=== PATIENT | male | born 1970 | race African-American/Black ===

== ENCOUNTER 2020-12-20 12:52 | Emergency (ER) | payer SELFPAY ==
--- NOTE | ~2020-12-20 | CT_ITS ---
EXAMINATION: CT abdomen pelvis w con DATE: 12/20/2020 15:28 INDICATION: Abdomen pain TECHNIQUE: Computed tomography (CT) of the abdomen and pelvis was performed with 100 cc Omnipaque 350 intravenous contrast. The dose-length product was 646.96 mGy-cm. Automated exposure control and iter ative reconstruction technique were employed. COMPARISON: None. FINDINGS: Lung bases are unremarkable. No significant pleural or pericardial effusion. Heart size is normal. No significant vascular abnormality. No lymphadenopathy. There is diffuse fatty infiltration of the liver. There are innumerable hypodense lesions of the live r throughout all segments. Gallbladder is contracted. The spleen, pancreas, adrenal glands and right kidney are unremarkable. 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 Nonobstructive bowel gas pattern. No free air or free fluid. No osteolytic or osteoblastic lesions. IMPRESSION: 1. Innumerable hypodense lesions of the liver which may represent microabscesses or metastatic diseas e. 2: Hepatic steatosis. 3: Heterotopic left pelvic kidney. Reviewed, dictated and finalized at location A. DESTRUCTIVE EVALUATION TECHNICIAN IMPRESSION: 1. Innumerable hypodense lesions of the liver which may represent microabscesse s or metastatic disease. 2: Hepatic steatosis. 3: Heterotopic left pelvic kidney.
[2020-12-20 12:58] VITALS: BP 200/125; PULSE 98; RESP 18; TEMP 35.7; O2SAT 100
[2020-12-20 13:23] LABS: Basophils Percent Auto 0.7 % (0.2-1.2); Eosinophils Percent Auto 0.7 % (0-4.4); Hematocrit 44.6 % (42.0-52.0); Hemoglobin 16.2 g/dL (14.0-18.0); Immature Granulocyte Absolute 0.01 K/mm3 (0.00-0.031); Immature Granulocyte Percent A 0.2 % (0-0.5); Lymphocytes Absolute Auto 1.85 K/mm3 (0.9-3.2); Lymphocytes Percent Auto 41.3 % (18.3-44.2); Mean Corpuscular HGB Conc 36.3 g/dl (32-36); Mean Corpuscular Hemoglobin 33.5 pg (26-34); Mean Corpuscular Volume 92.3 fl (80-100); Mean Platelet Volume 12.2 fl (7.4-10.4); Monocytes Absolute Auto 0.4 K/mm3 (0.1-0.6); Monocytes Percent Auto 9.6 % (2.6-8.5); Neutrophils Absolute Auto 2.1 K/mm3 (1.3-6.7); Neutrophils Percent Auto 47.5 % (45.5-73.1); Platelet Count Result 95 k/mm3 (150-375); Red Blood Count 4.83 M/mm3 (4.6-6.20); Red Cell Distribution Width 14.9 % (11.5-14.5); White Blood Count 4.5 K/mm3 (4.5-10.0)
[2020-12-20 13:42] LABS: Alanine Aminotransferase 171 U/L (4-50); Albumin Level 4.1 g/dL (3.5-5.1); Alkaline Phosphatase 175 U/L (38-126); Anion Gap 7 mmol/L (8-16); Aspartate Amino Transferase 279 U/L (17-59); Bilirubin,Total 4.5 mg/dL (0.2-1.3); Blood Urea Nitrogen 11 mg/dL (9-20); Calcium 8.6 mg/dL (8.4-10.2); Carbon Dioxide 34 mmol/L (22-30); Chloride 92 mmol/L (98-107); Estimated CRCL calculation 80 ml/min; Estimated Glomerular Filt Rate > 60; Glucose 151 mg/dL (75-110); Lipase 229 U/L (23-300); Potassium 2.8 mmol/L (3.4-5.0); Sodium 133 mmol/L (137-145)
[2020-12-20 13:46] LABS: Add Urine Microscopic? YES; Appearance Urine Clear (Clear); Bacteria Urine Trace /hpf; Bilirubin Urine Negative (Negative); Blood Urine 1+ (Negative); Color Urine Yellow (Yellow); Glucose Urine UA Negative (Negative); Ketones Urine Trace mg/dL (Negative); Leukocyte Esterase Ur Negative LEU/UL (Negative); Mucus Urine Rare /lpf; Nitrate Urine Negative (Negative); Protein Urine 2+ mg/dL (Negative); RBC Urine 0-2 /hpf (0-2); Specific Grav Ur 1.013 (1.001-1.035); WBC Urine 0-3 /hpf
--- NOTE | 2020-12-20 14:26 | ED.ABDPAIN ---
HPI - Abdominal Pain General Chief Complaint: Abdominal Pain Stated Complaint: ABD Pain, Ulcers Time Seen by Provider: 12/20/20 14:23 Source: patient Mode of arrival: ambulatory Limitations: no limitations History of Present Illness HPI narrative: A 50-year-old male presents to the emergency department today with complaints of abdominal pain, nausea vomiting and occasional black tarry stools. Patient does state that he has a history of drinking. He notes that he drinks approximately a pint of vodka daily or every other day. Patient states that his reason for coming in today was pain constantly for the last 3 days. Patient noted that as he came in and it did start to diminish. He denies having any black stools recently. Patient denies any recent nausea or vomiting. Related Data Allergies Allergy/AdvReac Type Severity Reaction Status Date / Time bacitracin Allergy Unknown Unknown Verified 12/20/20 13:01 neomycin Allergy Unknown Unknown Verified 12/20/20 13:01 polymyxin B Allergy Unknown Unknown Verified 12/20/20 13:01 Review of Systems Review of Systems: Narrative: CONSTITUTIONAL: Denies fever, chills, or sweats. EYES: Denies visual changes, redness, or discharge. ENT: Denies rhinorrhea, congestion, sore throat, or otalgia. CARDIOVASCULAR: Denies chest pain, palpitations, or edema. RESPIRATORY: Denies cough or dyspnea. GASTROINTESTINAL: Endorses abdominal pain, nausea, vomiting, and black stools. GENITOURINARY: Denies dysuria or hematuria. SKIN: Denies rash or itching. MUSCULOSKELETAL: Denies back pain, joint pain, or myalgia. NEUROLOGIC: Denies headache, numbness, dizziness, or weakness. PSYCHIATRIC: Denies anxiety or depression. [facility] Social History Social History Gender identity (if verbalized by the patient): Male Exam Narrative: Exam Narrative: GENERAL: Well-appearing, well-nourished, and in no acute distress. HEAD: Normocephalic, atraumatic. EYES: PERRLA and EOMI. ENT: Nares clear, no rhinorrhea or epistaxis. Mucous membranes moist. NECK: Supple. No adenopathy or masses. No carotid bruits or JVD CHEST: Clear to auscultation. No respiratory distress. No wheezes rales or rhonchi HEART: Regular rate and rhythm. No murmur heard. Normal peripheral pulses. ABDOMEN: Soft with generalized tenderness to palpation, nondistended, normal active bowel sounds. EXTREMITIES: Normal range of motion. No edema. SKIN: Warm, dry, no rash. NEURO: No focal deficits. Alert and oriented x3. PSYCH: Normal mood and affect. Course Reevaluation(s) Reevaluation #1: Informed the patient of the CT findings. With the elevation in his LFTs I do feel this warrants further evaluation. Patient's vitals are otherwise stable with the exception of his chronic hypertension. Case discussed with [facility] hepatology department as patient states that he does not want to be admitted or transferred. I feel an appropriate compromise would be to speak with the hepatology department and arrange close follow-up. Time: 16:55 Consultations Consultation #1: Spoke with Dr. Atkins, from [facility] GI department. He is in agreement that if the patient is not wanting to be transferred he may go home, and follow-up in the clinic as soon as possible. He states that he has the patient's information, will wrote a note to the dicer machine operator to try and get the patient an appointment for as soon as possible. Time: 17:05 Vital Signs Vital signs: Vital Signs Temperature 35.7 C L 12/20/20 12:58 Pulse Rate 98 12/20/20 12:58 Respiratory Rate 18 12/20/20 12:58 Blood Pressure 200/125 H 12/20/20 12:58 Pulse Oximetry 100 12/20/20 12:58 Temperature 35.7 C L 12/20/20 12:58 Pulse Rate 86 12/20/20 18:12 Respiratory Rate 21 H 12/20/20 18:12 Blood Pressure 212/137 H 12/20/20 18:12 Pulse Oximetry 98 12/20/20 18:12 MDM - Abdominal Pain MDM Narrative Medical decision making narrative: In brief
[2020-12-20] MEDS: POTASSIUM CHLORIDE 20 MEQ PACKET (FOR LIQUID) 40 MEQ PO (15:00)
[2020-12-20 15:52] VITALS: BP 233/139; PULSE 88; RESP 27; O2SAT 97
[2020-12-20] MEDS: ONDANSETRON INJ 4 MG/2 ML VIAL (15:58)
[2020-12-20] MEDS: amLODIPine BESYLATE 5 MG TABLET 10 MG PO (16:08)
[2020-12-20 16:27] VITALS: PULSE 94
[2020-12-20] MEDS: carvediloL 6.25 MG TABLET PO (16:27)
[2020-12-20 16:43] VITALS: BP 214/108; PULSE 99; RESP 15; O2SAT 100
[2020-12-20 18:12] VITALS: BP 212/137; PULSE 86; RESP 21; O2SAT 98
== END 2020-12-20 18:59 | disposition home or self-care (01) ==
PROVIDERS: Emergency Medicine; Emergency Provider Emergency Medicine
DX: D37.6 Neoplasm of uncertain behavior of liver, gallbladder and bile ducts (principal); E87.1 Hypo-osmolality and hyponatremia; K70.10 Alcoholic hepatitis without ascites; I10 Essential (primary) hypertension
CPT/HCPCS: 36415; 74177; 80053; 81001; 83690; 85025; 86850; 86900; 86901; 96365; 96366; 96375; 99284; A9270; J2405; J3480; Q9967

== ENCOUNTER 2021-03-17 16:22 | Emergency (ER) | payer OTHER, SELFPAY ==
--- NOTE | ~2021-03-17 | CT_ITS ---
EXAMINATION: CT brain wo con, CT facial bones wo con DATE: 03/17/2021 17:03 INDICATION: Left-sided facial swelling and confusion. TECHNIQUE: 1. Computed tomography (CT) of the head was performed without intravenous contrast. Sagittal and odette nal reconstructions were obtained. Automated exposure control and iterative reconstruction technique were employed. The dose-length product was 1059 mGy-cm. 2. CT of the facial bones and maxillofacial region was performed without intravenous contrast. Sagitt al and coronal reconstructions were obtained. The dose-length product was 584 mGy-cm. COMPARISON: Head CT dated 03/23/2019 FINDINGS: Head CT: No calvarial fracture. No acute intracranial hemorrhage, acute infarction or abnormal extra axial flu id collection. Ventricles are normal and symmetric. No mass/mass effect. Mastoid air cells and middle ear cavities are clear. Maxillofacial CT: Soft tissue swelling with subcutaneous edema surrounding a couple more focal globular region of incre ased attenuation likely representing hematomas in the left malar region. Soft tissue swelling extends cephalad into the left preseptal soft tissues. No maxillofacial fractures identified. Globes appear intact. No post septal inflammatory stranding. Mucosal thickening the right ethmoid sinuses. Remainde r of the paranasal sinuses are clear. IMPRESSION: 1. Left malar subcutaneous hematoma. No maxillofacial fractures. 2. Normal brain. No calvarial fracture or acute intracranial process. Reviewed, dictated and finalized at location A. IMPRESSION: 1. Left malar subcutaneous hematoma. No maxillofacial fractures. 2. Normal brain. No calvarial fracture or acute intracranial process.
[2021-03-17 16:20] VITALS: BP 176/129; PULSE 76; RESP 16; TEMP 36.4; O2SAT 100
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
[2021-03-17 16:59] LABS: Basophils Absolute Auto 0.1 K/mm3 (0.0-0.1); Basophils Percent Auto 0.7 % (0.2-1.2); Eosinophils Absolute Auto 0.1 K/mm3 (0-0.3); Eosinophils Percent Auto 0.9 % (0-4.4); Hematocrit 41.1 % (42.0-52.0); Hemoglobin 14.6 g/dL (14.0-18.0); Immature Granulocyte Absolute 0.01 K/mm3 (0.00-0.031); Immature Granulocyte Percent A 0.1 % (0-0.5); Lymphocytes Absolute Auto 3.69 K/mm3 (0.9-3.2); Lymphocytes Percent Auto 54.4 % (18.3-44.2); Mean Corpuscular HGB Conc 35.5 g/dl (32-36); Mean Corpuscular Hemoglobin 33.6 pg (26-34); Mean Corpuscular Volume 94.5 fl (80-100); Mean Platelet Volume 11.4 fl (7.4-10.4); Monocytes Absolute Auto 0.6 K/mm3 (0.1-0.6); Monocytes Percent Auto 8.3 % (2.6-8.5); Neutrophils Absolute Auto 2.4 K/mm3 (1.3-6.7); Neutrophils Percent Auto 35.6 % (45.5-73.1); Platelet Count Result 198 k/mm3 (150-375); Red Blood Count 4.35 M/mm3 (4.6-6.20); Red Cell Distribution Width 13.7 % (11.5-14.5); White Blood Count 6.8 K/mm3 (4.5-10.0)
[2021-03-17 17:09] LABS: Alanine Aminotransferase 98 U/L (4-50); Alkaline Phosphatase 71 U/L (38-126); Anion Gap 9 mmol/L (8-16); Aspartate Amino Transferase 196 U/L (17-59); Bilirubin,Total 1.4 mg/dL (0.2-1.3); Blood Urea Nitrogen 18 mg/dL (9-20); Calcium 9.5 mg/dL (8.4-10.2); Carbon Dioxide 30 mmol/L (22-30); Chloride 110 mmol/L (98-107); Estimated CRCL calculation 101 ml/min; Estimated Glomerular Filt Rate > 60; Glucose 155 mg/dL (75-110); Potassium 3.4 mmol/L (3.4-5.0); Sodium 149 mmol/L (137-145)
[2021-03-17] MEDS: METOCLOPRAMIDE HCL INJ 10 MG/2 ML VIAL IV PUSH (17:19)
[2021-03-17] MEDS: SODIUM CHLORIDE 0.9% IV 1,000 ML 999 ML (17:19)
--- NOTE | 2021-03-17 17:19 | PC.NURSE ---
Bed alarm placed under patient r/t alcohol use and fall risk.
--- NOTE | 2021-03-17 17:24 | PC.NURSE ---
Patient continue to attempt to get out of bed, advised to stay in bed r/t fall risk. Sitter placed at bedside.
[2021-03-17 17:45] LABS: Lipase 281 U/L (23-300)
[2021-03-17 18:08] VITALS: BP 175/103; PULSE 75; RESP 18; O2SAT 98
[2021-03-17 19:15] VITALS: BP 169/104; PULSE 72; RESP 18; O2SAT 98
== END 2021-03-17 19:15 | disposition home or self-care (01) ==
PROVIDERS: Emergency Provider Emergency Medicine
DX: S00.83XA Contusion of other part of head, initial encounter (principal); F10.10 Alcohol abuse, uncomplicated; X58.XXXA Exposure to other specified factors, initial encounter
CPT/HCPCS: 36415; 70450; 70486; 80053; 83690; 85025; 96361; 96374; 99284; J2765; J7030

== ENCOUNTER 2021-03-26 03:00 | Inpatient (IN) | payer OTHER, SELFPAY ==
[2021-03-26] VITALS (20 sets, daily range): BP systolic 154–198; BP diastolic 88–118; PULSE 69–96; RESP 16–20; TEMP 36.1–36.9; O2SAT 95–100; BMI 24.5
--- NOTE | 2021-03-26 | ECHO_ITS ---
Patient Info Name: Pranay Parks Age: 50 years : 1970 Gender: Male Ht: 75 in Wt: 196 lbs BSA: 2.17 m2 HR: 72 bpm BP: 167 / 101 mmHg Heart Rhythm: Sinus Rhythm Technical Quality: Good Exam Date: 03/26/2021 12:35 PM Exam Location: [facility] Pulmonary Patient Status: Inpatient Admit Date: 03/26/2021 Staff Ordering Physician: Jadiel Mascorro Bilingual Trainer: Lizabeth Attending Provider: Sd Pagan MD Referring Physician: Ludwin LOREDO; Exam Type: CA echo doppler color flow Study Info Indications R07.89 - Other chest pain Complete two-dimensional, color flow and Doppler transthoracic echocardiogram is performed. Summary 1. Complete two-dimensional, color flow and Doppler transthoracic echocardiogram is performed. 2. Left ventricular chamber dimension is normal. 3. Left ventricular systolic function is normal, estimated at 65-70%. 4. There is severely increased left ventricular wall thickness. 5. The left ventricular diastolic function is grade I diastolic dysfunction. 6. Left atrial chamber dimension is mildly enlarged. 7. There is mild mitral valve regurgitation. 8. The mitral valve has thickened leaflets. 9. There is mild tricuspid valve regurgitation. 10. There is mild pulmonic regurgitation. Left Ventricle Left ventricular chamber dimension is normal. Left ventricular systolic function is normal, estimated at 65-70%. There is severely increased left ventricular wall thickness. The left ventricular diastolic function is grade I diastolic dysfunction. Right Ventricle Right ventricular chamber dimension is normal. Right ventricular systolic function is normal. Left Atria Left atrial chamber dimension is mildly enlarged. Right Atria Right atrial chamber dimension is normal. Atrial Septum Intact interatrial septum visualized by color flow imaging. Aortic Valve The aortic valve is trileaflet. There is mild aortic valve sclerosis. There is no aortic valve stenosis. There is trace aortic valve regurgitation. Pulmonic Valve The pulmonic valve is normal. There is no pulmonic valve stenosis. There is mild pulmonic regurgitation. Mitral Valve The mitral valve has thickened leaflets. There is no mitral valve stenosis. There is mild mitral valve regurgitation. Tricuspid Valve The tricuspid valve leaflets are normal. There is no significant tricuspid valve stenosis. There is mild tricuspid valve regurgitation. No pulmonary hypertension, estimated pulmonary arterial systolic pressure is 12 mmHg. Pericardium/Pleural The pericardium appears normal. There is no pericardial effusion. Inferior Vena Cava Normal inferior vena cava with >50% collapse upon inspiration consistent with normal right atrial pressure, 5 mmHg. Aorta The aortic root size at the sinus of Valsalva is normal. The prox ascending aorta size is normal. Left Ventricular Outflow Tract Name Value Normal LVOT 2D LVOT Diameter 2.4 cm LVOT Doppler LVOT Peak Gradient 6 mmHg LVOT Mean Gradient 3 mmHg LVOT VTI
--- NOTE | ~2021-03-26 | CT_ITS ---
EXAMINATION: CT brain wo con DATE: 03/26/2021 04:00 INDICATION: Seizure. TECHNIQUE: Computed tomography (CT) of the head was performed without intravenous contrast. The mA wa s adjusted according to patient size. Iterative reconstruction technique was employed. The dose-lengt h product was 681.00 mGy-cm. COMPARISON: Head CT 03/17/2021 FINDINGS: There is no intracranial hemorrhage, acute infarction, or abnormal intracranial mass lesion . The ventricles are normal in size. There is mild mucosal thickening in right frontal sinus. The mas toid air cells are normal. The orbits are normal. IMPRESSION: 1. Normal brain. Reviewed, dictated and finalized at location B. IMPRESSION: 1. Normal brain.
--- NOTE | ~2021-03-26 | CT_ITS ---
EXAMINATION: CT chest abdomen pelvis wo con DATE: 03/26/2021 13:29 INDICATION: Right upper quadrant abdominal pain. TECHNIQUE: Computed tomography (CT) of the chest, abdomen, and pelvis was performed without intraveno us contrast. Automated exposure control and iterative reconstruction technique were employed. The dos e-length product was 1072.13 mGy-cm. COMPARISON: CT abdomen and pelvis 12/20/2020 FINDINGS: CHEST CT: There is mild scarring at the lung apices. There is mild emphysema. There is mild atelectasis in righ t lower lobe. There is a 4 mm nodule at left major fissure, likely benign. No pleural effusion. The h eart size is normal. There are coronary artery calcifications. No pericardial effusion. There is mild thoracic spondylosis. ABDOMEN/PELVIS CT: The liver demonstrates heterogeneous attenuation and surface nodularity, consistent with cirrhosis. T he gallbladder, spleen, pancreas, adrenal glands and right kidney are normal. There is a left-sided p elvic kidney. There are no dilated loops of bowel. The appendix is normal. There are no pathologicall y enlarged lymph nodes. There is no free intraperitoneal fluid. There is mild lumbar spondylosis. IMPRESSION: 1. Cirrhosis of the liver. Reviewed, dictated and finalized at location B. IMPRESSION: 1. Cirrhosis of the liver.
--- NOTE | ~2021-03-26 | US_ITS ---
EXAMINATION: US venous doppler [facility] DATE: 03/28/2021 15:03 INDICATION: Painful bilateral varicose veins. TECHNIQUE: Grayscale ultrasound images without and with compression and Doppler ultrasound images of the bilateral lower extremity veins were obtained. COMPARISON: None. FINDINGS: The visualized portions of right common femoral vein, profunda (deep) femoral vein, femoral vein, pop liteal vein, posterior tibial veins, peroneal veins, gastrocnemius vein and greater saphenous vein ou tflow are patent. Patent and compressible subcutaneous varicosities measure up to 4-5 mm in diameter are seen at the right thigh. The visualized portions of left common femoral vein, profunda femoral vein, femoral vein, popliteal v ein, posterior tibial veins, peroneal veins, gastrocnemius vein and greater saphenous vein outflow ar e patent. IMPRESSION: 1. No deep venous thrombosis in either lower limb. 2. Small subcutaneous varicosities at the right thigh without evident thrombosis. Reviewed, dictated and finalized at location A. IMPRESSION: 1. No deep venous thrombosis in either lower limb. 2. Small subcutaneous varicosities at the right thigh without evident thrombosi s.
--- NOTE | ~2021-03-26 | XR_ITS ---
EXAMINATION: XR chest 2V DATE: 03/26/2021 04:07 INDICATION: Seizure TECHNIQUE: frontal and lateral views of the chest were obtained. COMPARISON: Chest radiograph dated 06/23/2015 FINDINGS: The lungs remain clear with no focal airspace opacities, pulmonary edema, pleural effusion or pneumot horax. The cardiomediastinal silhouette is normal. Mild thoracic spondylosis. IMPRESSION: 1. No acute cardiopulmonary disease. Reviewed, dictated and finalized at location A.
--- NOTE | 2021-03-26 03:01 | ED.SEIZURE ---
HPI - Seizure General Chief Complaint: Seizure Stated Complaint: UNKNOWN Time Seen by Provider: 03/26/21 03:01 Source: patient Mode of arrival: EMS Limitations: no limitations History of Present Illness HPI Narrative: Patient is a 50-year-old male with a history of alcohol abuse and alcoholic hepatitis who presents for evaluation of seizure activity. Patient was noted by roommate to be having shaking activity resembling a seizure, thus 911 was called. When EMS arrived, patient was confused. Patient was initially refusing transport but over a period of nearly 1 hour EMS was able to convince patient to come to hospital to be evaluated. Patient currently is awake, alert to person, place and to time. He denies any seizure history. He states he typically drinks 1 to 2 pints of alcohol daily but has not had any alcohol for 4 days. He denies any tongue biting, tongue lacerations or urinary incontinence. Patient denies any pain. He denies headache, chest pain, shortness of breath. Patient denies other drug use. EMS glucose 140. Related Data Allergies Allergy/AdvReac Type Severity Reaction Status Date / Time bacitracin Allergy Unknown Unknown Verified 03/17/21 16:42 neomycin Allergy Unknown Unknown Verified 03/17/21 16:42 polymyxin B Allergy Unknown Unknown Verified 03/17/21 16:42 Review of Systems Review of Systems: Narrative: CONSTITUTIONAL: Denies fever, chills, or sweats. EYES: Denies visual changes, redness, or discharge. ENT: Denies rhinorrhea, congestion, sore throat, or otalgia. CARDIOVASCULAR: Denies chest pain, palpitations, or edema. RESPIRATORY: Denies cough or dyspnea. GASTROINTESTINAL: Denies abdominal pain, nausea, vomiting, or diarrhea. GENITOURINARY: Denies dysuria or hematuria. SKIN: Denies rash or itching. MUSCULOSKELETAL: Denies back pain, joint pain, or myalgia. NEUROLOGIC: Denies headache, numbness, or weakness. [facility] Past Medical History Medical History (Updated 03/26/21 @ 04:45 by Cherelle Alvarez MD) Contusion of face Essential hypertension Social History Social History (Updated 03/26/21 @ 03:14 by Cherelle Alvarez MD) Alcohol intake: current Substance use: current Substance use type: marijuana Living arrangements: with roommate(s) Gender identity (if verbalized by the patient): Male Exam Narrative: Exam Narrative: Nursing note and vitals reviewed. CONSTITUTIONAL: The patient appears well-developed and well-nourished. No distress. HEAD: Normocephalic, left periorbital ecchymosis EYES: 2+ PERRL, EOMI, normal conjunctiva, anicteric EARS: External ears clear bilaterally, no hemotympanum MOUTH: OP clear, no erythema, exudates. No tongue laceration. NECK: midline trachea, supple, FROM. No midline cervical spinal tenderness. CARDIOVASCULAR: Normal rate, regular rhythm, normal heart sounds and intact distal pulses. No murmurs, rubs, gallops. PULMONARY: Effort normal and breath sounds normal. No respiratory distress. The patient has no wheezes, rales, ronchi. No chest wall tenderness, crepitus or ecchymoses. ABDOMINAL: Soft. Nontender, nondistended. No palpable masses EXTREMITIES:: moving all extremities symmetrically. -RUE: No deformity. Normal ROM at shoulder, elbow, wrist, and hand. Sensation intact M/U/R. Pulse 2+. -LUE: No deformity. Normal ROM at shoulder, elbow, wrist, and hand., Sensation intact M/U/R. Pulse 2+ -RLE: No deformity. Normal ROM at hip, knee, ankle. Sensation intact distally. -LLE: No deformity. Normal ROM at hip, knee, ankle. Sensation intact distally. NEUROLOGY: The patient is alert and oriented to person, place, and time. CN II-XII intact without deficits. Course Vital Signs Vital signs: Vital Signs Temperature 36.9 C 03/26/21 02:58 Pulse Rate 96 03/26/21 02:58 Respiratory Rate 16 03/26/21 02:58 Blood Pressure 197/113 H 03/26/21 02:58 Pulse Oximetry 98 03/26/21 02:58 Temperature 36.9 C 03/26/21 02:58 Pulse Rate 74 03/26/21 04:16 Respi
--- NOTE | 2021-03-26 03:08 | ECG_ITS ---
Measurements Intervals [place] Rate: 83 P: 65 WV: 155 QRS: -49 QRSD: 114 T: 53 QT: 412 QTc: 484 Interpretive Statements SINUS RHYTHM LEFT ANTERIOR FASCICULAR BLOCK VOLTAGE CRITERIA FOR LVH ABNORMAL ECG Electronically Signed On 03-26-2021 7:07:33 CDT by Sesar Xie D.O.
[2021-03-26 03:22] LABS: Basophils Percent Auto 0.4 % (0.2-1.2); Eosinophils Absolute Auto 0.1 K/mm3 (0-0.3); Hematocrit 42.8 % (42.0-52.0); Hemoglobin 14.9 g/dL (14.0-18.0); Immature Granulocyte Absolute 0.03 K/mm3 (0.00-0.031); Immature Granulocyte Percent A 0.4 % (0-0.5); Lymphocytes Absolute Auto 1.98 K/mm3 (0.9-3.2); Lymphocytes Percent Auto 28.9 % (18.3-44.2); Mean Corpuscular HGB Conc 34.8 g/dl (32-36); Mean Corpuscular Hemoglobin 33.7 pg (26-34); Mean Corpuscular Volume 96.8 fl (80-100); Monocytes Absolute Auto 0.8 K/mm3 (0.1-0.6); Monocytes Percent Auto 12.2 % (2.6-8.5); Neutrophils Absolute Auto 3.9 K/mm3 (1.3-6.7); Neutrophils Percent Auto 57.1 % (45.5-73.1); Platelet Count Result 94 k/mm3 (150-375); Red Blood Count 4.42 M/mm3 (4.6-6.20); Red Cell Distribution Width 13.4 % (11.5-14.5); White Blood Count 6.9 K/mm3 (4.5-10.0)
[2021-03-26] MEDS: SODIUM CHLORIDE 0.9% IV 1,000 ML 999 ML IV CONT (03:23)
[2021-03-26] MEDS: LORazepam INJ (*CRX) 2 MG/ML VIAL 1 MG IV PUSH (03:23)
[2021-03-26 03:33] LABS: INR 1.3; Prothrombin Time 16.9 Seconds (11.1-14.7)
[2021-03-26 03:34] LABS: Partial Thromboplastin Time 26.8 SECONDS (22.3-36.8)
[2021-03-26 03:35] LABS: Magnesium 0.9 mg/dL (1.6-2.3); Phosphorus 2.9 mg/dL (2.5-4.5)
[2021-03-26 04:04] LABS: Alanine Aminotransferase 137 U/L (4-50); Albumin Level 4.3 g/dL (3.5-5.1); Alkaline Phosphatase 122 U/L (38-126); Anion Gap 17 mmol/L (8-16); Aspartate Amino Transferase 265 U/L (17-59); Bilirubin,Total 4.5 mg/dL (0.2-1.3); Blood Urea Nitrogen 12 mg/dL (9-20); Calcium 9.3 mg/dL (8.4-10.2); Carbon Dioxide 26 mmol/L (22-30); Chloride 94 mmol/L (98-107); Estimated CRCL calculation 65 ml/min; Estimated Glomerular Filt Rate > 60; Glucose 149 mg/dL (75-110); Potassium 2.5 mmol/L (3.4-5.0); Sodium 137 mmol/L (137-145); Troponin I 0.051 ng/mL (0.000-0.034)
[2021-03-26] MEDS: MAGNESIUM SULF 2 GM/WATER 50ML 2 GM/50 ML BAG IVPB (04:17)
[2021-03-26] MEDS: THIAMINE HCL INJ 100 MG, FOLIC ACID INJ 1 MG, MULTIVITAMINS-12 INJ VIAL 1 5 ML, MULTIVI... IV CONT (04:17)
[2021-03-26] MEDS: METOPROLOL TARTRATE INJ 5 MG/5 ML VIAL IV PUSH (04:17)
[2021-03-26 04:26] LABS: Ethanol < 10 mg/dL (<10)
[2021-03-26] MEDS: POTASSIUM CHLORIDE 20 MEQ PACKET (FOR LIQUID) 40 MEQ PO (04:37)
[2021-03-26] MEDS: hydroCHLOROthiazide 25 MG TABLET PO (04:37)
[2021-03-26] MEDS: carvediloL 12.5 MG TABLET PO (04:37)
[2021-03-26] MEDS: amLODIPine BESYLATE 5 MG TABLET 10 MG PO (04:37)
--- NOTE | 2021-03-26 06:15 | ADMGEN ---
This patient, Pranay Parks, was admitted to IMU Room 204-01. Patient/family oriented to hospital policies and general routines including ID bracelet, bed and alarms, visiting hours, pain management, procedures, bathroom and other care routines, personal items, smoking policy, room service/diet, and visiting hours. Information on how to activate the Rapid Response Team has been discussed. Patient/Family are encouraged to report perceived risks to care and to ask questions if they do not understand what they are told or what they should do.
[2021-03-26] MEDS: lisinopriL 10 MG TABLET PO (06:53)
[2021-03-26 07:06] LABS: Troponin I 0.064 ng/mL (0.000-0.034)
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
--- NOTE | 2021-03-26 08:15 | ECG_ITS ---
Measurements Intervals [place] Rate: 69 P: 66 MD: 163 QRS: -39 QRSD: 135 T: -50 QT: 440 QTc: 475 Interpretive Statements SINUS RHYTHM LEFT AXIS DEVIATION INTRAVENTRICULAR CONDUCTION DELAY LEFT VENTRICULAR HYPERTROPHY AND ST-T CHANGE BORDERLINE T WAVE ABNORMALITY- INFERIOR LEADS BASELINE ARTIFACT- V4-V6 BORDERLINE ECG Electronically Signed On 03-26-2021 9:00:39 CDT by Sesar Xie D.O.
[2021-03-26] MEDS: ASPIRIN 81 MG CHEWABLE TABLET PO (09:56)
[2021-03-26 10:02] LABS: Troponin I 0.059 ng/mL (0.000-0.034)
--- NOTE | 2021-03-26 10:57 | PM.CNCAR ---
Assessment and Plan Assessment and plan (1) Elevated troponin: Code(s): R77.8 - Other specified abnormalities of plasma proteins Status: Acute Assessment and Plan: This is not related to acute coronary syndrome. He is secondary for either to his seizure or his marked hypertension. DC further troponins. Repeat EKG (2) Alcohol withdrawal seizure: Qualifiers: Complication of substance-induced condition: uncomplicated Qualified Code(s): F10.230 - Alcohol dependence with withdrawal, uncomplicated; R56.9 - Unspecified convulsions Code(s): F10.239 - Alcohol dependence with withdrawal, unspecified; R56.9 - Unspecified convulsions Status: Acute Assessment and Plan: Per neurology (3) Electrolyte imbalance: Code(s): E87.8 - Other disorders of electrolyte and fluid balance, not elsewhere classified Status: Acute Assessment and Plan: Markedly low magnesium and potassium levels. Discontinue hydrochlorothiazide since he has persistent hypokalemia. He also may have a hyperaldosterone state. Will give an additional 4 g of IV magnesium now (4) Hypertensive urgency: Code(s): I16.0 - Hypertensive urgency Status: Acute Assessment and Plan: Possibly secondary to lack of medications recently versus alcohol abuse versus other secondary etiologies including possible hyper aldosterone state, untreated sleep apnea. Will check a renal and aldosterone level. 2D echocardiogram Doppler is ordered and will be reviewed. Continue amlodipine, lisinopril. Add carvedilol 6.25 mg p.o. b.i.d.. Spironolactone may be a good choice for him also depending on his renal function over the next couple of days. (5) Alcohol abuse: Code(s): F10.10 - Alcohol abuse, uncomplicated Status: Acute Assessment and Plan: Counseling performed. (6) Tobacco abuse: Code(s): Z72.0 - Tobacco use Status: Acute Assessment and Plan: Counseling performed History of Present Illness History of Present Illness Consult date/time: 03/26/21 10:57 Requesting physician: Cherelle Alvarez MD Consult reason: Other (Hypertensive urgency) Reason For Visit: Alcohol withdrawal seizure, Hypertensive urgency Narrative: Date of service 03/26/2021: History patient 50-year-old male who has history of high blood pressure. He has not been taking his medications recently. He states that he has a longstanding history of high blood pressure that he in firs is not well controlled at baseline. He has had a seizure at least 1 other occasion. He was at home a yesterday when every parent Monica had a seizure. He drinks alcohol routinely. According to chart record review he drinks anywhere from half pt to over a pt per day. He states he left work because of some Char[employer] horses that he has been having throughout his whole body. His potassium level and magnesium level were markedly low upon presentation to the hospital with a potassium level 2.5 and a magnesium of 0.9. Blood pressure was also very elevated and troponins were minimally elevated and Cardiology consultation was therefore requested. Patient denies any exertional chest pain. No paroxysmal nocturnal dyspnea, significant swelling, unusual shortness of breath with activity, syncope or presyncope or palpitations. Currently resting in bed with complaints of muscle cramping Review of Systems Review of Systems: All systems reviewed & are unremarkable except as noted in HPI and below Constitutional: Constitutional: Denies weakness Eyes: Eyes: Denies blurry vision ENT: Reports Normal hearing present Cardiovascular: Cardiovascular: Denies chest pain Respiratory: Respiratory: Denies dyspnea Gastrointestinal: Gastrointestinal: Denies abdominal pain Genitourinary: Genitourinary: Denies dysuria Musculoskeletal: Comments: Diffuse muscle cramping Integumentary/Breasts: Skin/Breast: Denies dry skin Neurologic: Denies headache(s
--- NOTE | 2021-03-26 11:07 | ECG_ITS ---
Measurements Intervals [place] Rate: 73 P: 64 OK: 161 QRS: -39 QRSD: 117 T: -18 QT: 424 QTc: 468 Interpretive Statements SINUS RHYTHM LEFT AXIS DEVIATION INCOMPLETE LEFT BUNDLE BRANCH BLOCK VOLTAGE CRITERIA FOR LVH CANNOT RULE OUT SEPTAL INFARCT, AGE INDETERMINATE BORDERLINE T WAVE ABNORMALITY- INFERIOR LEADS BASELINE ARTIFACT- V6 ABNORMAL ECG Electronically Signed On 03-26-2021 12:29:15 CDT by Sesar Xie D.O.
[2021-03-26] MEDS: hydrALAZINE HCL 20 MG/ML VIAL IV PUSH (12:43)
[2021-03-26] MEDS: HYDROcodone/acetaminophen (*CRX) 5-325 MG TABLET 1 TAB PO ×2 (12:43→20:34)
[2021-03-26] MEDS: MAGNESIUM SULF 4 GM/WATER100ML 4 GM/100 ML BAG IVPB (12:49)
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
[2021-03-26] MEDS: hydrALAZINE HCL 20 MG/ML VIAL 10 MG IV PUSH (16:25)
[2021-03-26 16:29] LABS: Anion Gap 7 mmol/L (8-16); Blood Urea Nitrogen 11 mg/dL (9-20); Calcium 8.9 mg/dL (8.4-10.2); Carbon Dioxide 31 mmol/L (22-30); Chloride 95 mmol/L (98-107); Estimated CRCL calculation 95 ml/min; Estimated Glomerular Filt Rate > 60; Glucose 193 mg/dL (75-110); Magnesium 2.1 mg/dL (1.6-2.3); Potassium 2.4 mmol/L (3.4-5.0); Sodium 133 mmol/L (137-145)
[2021-03-26] MEDS: POTASSIUM CHLORIDE 20 MEQ TABLET 40 MEQ PO (17:17)
[2021-03-26] MEDS: carvediloL 6.25 MG TABLET PO (20:33)
[2021-03-27] VITALS (19 sets, daily range): BP systolic 132–159; BP diastolic 80–102; PULSE 65–93; RESP 14–22; TEMP 36.2–36.6; O2SAT 97–100
[2021-03-27] MEDS: HYDROcodone/acetaminophen (*CRX) 5-325 MG TABLET 1 TAB PO ×4 (03:09→23:23)
[2021-03-27] MEDS: ONDANSETRON INJ 4 MG/2 ML VIAL IV PUSH (03:09)
[2021-03-27 05:29] LABS: Alanine Aminotransferase 108 U/L (4-50); Albumin Level 3.3 g/dL (3.5-5.1); Alkaline Phosphatase 94 U/L (38-126); Anion Gap 4 mmol/L (8-16); Aspartate Amino Transferase 180 U/L (17-59); Bilirubin,Total 2.8 mg/dL (0.2-1.3); Blood Urea Nitrogen 10 mg/dL (9-20); Calcium 8.5 mg/dL (8.4-10.2); Carbon Dioxide 33 mmol/L (22-30); Chloride 98 mmol/L (98-107); Estimated CRCL calculation 87 ml/min; Estimated Glomerular Filt Rate > 60; Glucose 133 mg/dL (75-110); Magnesium 1.8 mg/dL (1.6-2.3); Potassium 2.7 mmol/L (3.4-5.0); Sodium 135 mmol/L (137-145)
[2021-03-27] MEDS: amLODIPine BESYLATE 5 MG TABLET 10 MG PO (08:13)
[2021-03-27] MEDS: carvediloL 6.25 MG TABLET PO ×2 (08:13→19:41)
[2021-03-27] MEDS: ASPIRIN 81 MG CHEWABLE TABLET PO (08:13)
[2021-03-27] MEDS: lisinopriL 20 MG TABLET PO (08:13)
[2021-03-27] MEDS: THIAMINE HCL 100 MG TABLET PO (08:13)
[2021-03-27] MEDS: MAGNESIUM SULF 1 GM/D5W 100 ML 1 GM/100 ML BAG IVPB (08:14)
[2021-03-27] MEDS: FOLIC ACID 1 MG TABLET PO (08:14)
[2021-03-27] MEDS: POTASSIUM CHLORIDE 20 MEQ TABLET 40 MEQ PO ×2 (08:14→16:19)
[2021-03-27] MEDS: SPIRONOLACTONE 12.5 MG TABLET PO (08:14)
--- NOTE | 2021-03-27 09:14 | P.PNIM_ITS ---
Progress Note: A&P Assessment and Plan (1) Alcohol withdrawal seizure: Qualifiers: Complication of substance-induced condition: uncomplicated Qualified Code(s): F10.230 - Alcohol dependence with withdrawal, uncomplicated; R56.9 - Unspecified convulsions Code(s): F10.239 - Alcohol dependence with withdrawal, unspecified; R56.9 - Unspecified convulsions Status: Acute Assessment and Plan: * Patient is an every day drinker * No ETOH for the last four days * No history of seizure * CT head negative * Neurology following thank you for recommendations * CIWA * Lorazepam 1mg q6hr PRN * Folic acid 1mg PO * Thiamine 100mg PO * Move out of the IMU (2) Acute hypokalemia: Code(s): E87.6 - Hypokalemia Status: Acute Assessment and Plan: * Potassium 2.7 this am. repeat 3.4 will replace with 40mEq PO * 40mg PO and 40mg IV, total of approximately 240 mEq PO and IV * Recheck one hour after last replacement * Changed hydrochlorothiazide 12.5mg PO to spironolactone 12.5mg PO. * Replace as needed * [facility] tomorrow (3) Hypertensive urgency: Code(s): I16.0 - Hypertensive urgency Status: Acute Assessment and Plan: * 159/102 this am, instructed to give the PRN hydralazine 10mg IV * Patient has history of hypertension, non-compliant with medications * Received lisinopril 20mg PO, Hydrochlorothiazide 12.5mg PO, Amlodipine 10mg PO, Metoprolol 5mg IV in ED. * Cardiology following- thank you for recommendations * Continue home amlodipine 10mg, and lisinopril 20mg, add carvedilol 6.25mg * Changed the hydrochlorothiazide 12.5mg to spironolactone 12.5mg PO * Hydralazine 10 mg IV PRN (4) Cirrhosis, alcoholic: Qualifiers: Ascites presence: without ascites Qualified Code(s): K70.30 - Alcoholic cirrhosis of liver without ascites Code(s): K70.30 - Alcoholic cirrhosis of liver without ascites Status: Acute Assessment and Plan: * Right and left quad abdominal pain * CT of chest abdomen and pelvis: showed cirrhosis of the liver * Yellowing of the sclarea and pain with deep palpitation. * AST 180, ALT 108, Bilirubin 2.8, albumin 3.3 * Trend LFTs * Will repeat tomorrow (5) Alcohol abuse: Code(s): F10.10 - Alcohol abuse, uncomplicated Status: Acute Assessment and Plan: * Admits to drinking unclear about amount or frequency * No history of ETOH withdrawal * Educated about cessation of ETOH * treatment plans available * see plan above (6) Hypomagnesemia: Code(s): E83.42 - Hypomagnesemia Status: Acute Assessment and Plan: * Magnesium is 1.8, repeat was 1.9 * 1g ordered for replacement * 6g IV given throughout the day yesterday * will recheck with BMP 1 hour after replacements have been given * Mag in the AM * replace as needed (7) Elevated troponin: Code(s): R77.8 - Other specified abnormalities of plasma proteins Status: Acute Assessment and Plan: * Troponin: 0.051 -> 0.064 * no palpitations or chest pain on examination * Does report some palpitations in the past * Elevated blood pressure, more controlled * Elevation in V2-3 that looks the same as a previous EKG in 2019 * aspirin 81mg PO daily * Cardiology following thank you for recommendation (8) Chronic kidney disease (CKD) stage G2/A1, mildly decreased glomerular filtration rate (GFR) between 60-89 mL/min/1.73 square meter an
--- NOTE | 2021-03-27 09:14 | PM.IMPN ---
Progress Note: A&P Assessment and Plan (1) Alcohol withdrawal seizure: Qualifiers: Complication of substance-induced condition: uncomplicated Qualified Code(s): F10.230 - Alcohol dependence with withdrawal, uncomplicated; R56.9 - Unspecified convulsions Code(s): F10.239 - Alcohol dependence with withdrawal, unspecified; R56.9 - Unspecified convulsions Status: Acute Assessment and Plan: Patient is an every day drinker No ETOH for the last four days No history of seizure CT head negative Neurology following thank you for recommendations CIWA Lorazepam 1mg q6hr PRN Folic acid 1mg PO Thiamine 100mg PO Move out of the IMU (2) Acute hypokalemia: Code(s): E87.6 - Hypokalemia Status: Acute Assessment and Plan: Potassium 2.7 this am. repeat 3.4 will replace with 40mEq PO 40mg PO and 40mg IV, total of approximately 240 mEq PO and IV Recheck one hour after last replacement Changed hydrochlorothiazide 12.5mg PO to spironolactone 12.5mg PO. Replace as needed BMP tomorrow (3) Hypertensive urgency: Code(s): I16.0 - Hypertensive urgency Status: Acute Assessment and Plan: 159/102 this am, instructed to give the PRN hydralazine 10mg IV Patient has history of hypertension, non-compliant with medications Received lisinopril 20mg PO, Hydrochlorothiazide 12.5mg PO, Amlodipine 10mg PO, Metoprolol 5mg IV in ED. Cardiology following- thank you for recommendations Continue home amlodipine 10mg, and lisinopril 20mg, add carvedilol 6.25mg Changed the hydrochlorothiazide 12.5mg to spironolactone 12.5mg PO Hydralazine 10 mg IV PRN (4) Cirrhosis, alcoholic: Qualifiers: Ascites presence: without ascites Qualified Code(s): K70.30 - Alcoholic cirrhosis of liver without ascites Code(s): K70.30 - Alcoholic cirrhosis of liver without ascites Status: Acute Assessment and Plan: Right and left quad abdominal pain CT of chest abdomen and pelvis: showed cirrhosis of the liver Yellowing of the sclarea and pain with deep palpitation. AST 180, ALT 108, Bilirubin 2.8, albumin 3.3 Trend LFTs Will repeat tomorrow (5) Alcohol abuse: Code(s): F10.10 - Alcohol abuse, uncomplicated Status: Acute Assessment and Plan: Admits to drinking unclear about amount or frequency No history of ETOH withdrawal Educated about cessation of ETOH treatment plans available see plan above (6) Hypomagnesemia: Code(s): E83.42 - Hypomagnesemia Status: Acute Assessment and Plan: Magnesium is 1.8, repeat was 1.9 1g ordered for replacement 6g IV given throughout the day yesterday will recheck with BMP 1 hour after replacements have been given Mag in the AM replace as needed (7) Elevated troponin: Code(s): R77.8 - Other specified abnormalities of plasma proteins Status: Acute Assessment and Plan: Troponin: 0.051 -> 0.064 no palpitations or chest pain on examination Does report some palpitations in the past Elevated blood pressure, more controlled Elevation in V2-3 that looks the same as a previous EKG in 2019 aspirin 81mg PO daily Cardiology following thank you for recommendation (8) Chronic kidney disease (CKD) stage G2/A1, mildly decreased glomerular filtration rate (GFR) between 60-89 mL/min/1.73 square meter and albuminuria creatinine ratio less than 30 mg/g: Code(s): N18.2 - Chronic kidney disease, stage 2 (mild) Status: Acute Assessment and Plan: Creatine is 1.1 GFR >60 Past history of creatinine of 1.3-1.4 Probably related to HTN Trend renal function Control blood pressure Subjective Date/time seen: 03/27/21 09:14 Patient is a 50-year-old male with a past medical history of hypertension and alcohol abuse who presents to the ED after a fall and witnessed seizure by remain. Patient
--- NOTE | 2021-03-27 09:28 | PM.PNCARD ---
Progress Note: A&P Assessment and Plan (1) Elevated troponin: Code(s): R77.8 - Other specified abnormalities of plasma proteins Status: Acute Assessment and Plan: This is not related to acute coronary syndrome. He is secondary for either to his seizure or his marked hypertension. DC further troponins. (2) Alcohol withdrawal seizure: Qualifiers: Complication of substance-induced condition: uncomplicated Qualified Code(s): F10.230 - Alcohol dependence with withdrawal, uncomplicated; R56.9 - Unspecified convulsions Code(s): F10.239 - Alcohol dependence with withdrawal, unspecified; R56.9 - Unspecified convulsions Status: Acute Assessment and Plan: Per neurology (3) Electrolyte imbalance: Code(s): E87.8 - Other disorders of electrolyte and fluid balance, not elsewhere classified Status: Acute Assessment and Plan: Markedly low magnesium and potassium levels. Replacing potassium now. Will give an additional 2 g of IV magnesium now (4) Hypertensive urgency: Code(s): I16.0 - Hypertensive urgency Status: Acute Assessment and Plan: Possibly secondary to lack of medications recently versus alcohol abuse versus other secondary etiologies including possible hyper aldosterone state, untreated sleep apnea. renal and aldosterone level are pending. Continue amlodipine, lisinopril. Continue carvedilol 6.25 mg p.o. b.i.d.. Increase spironolactone 25 mg daily (5) Alcohol abuse: Code(s): F10.10 - Alcohol abuse, uncomplicated Status: Acute Assessment and Plan: Counseling performed. (6) Tobacco abuse: Code(s): Z72.0 - Tobacco use Status: Acute Assessment and Plan: Counseling performed Subjective Date/time seen: 03/27/21 09:28 Interval history: 50-year-old admitted for hypertensive urgency Date of service 03/27/2021: He denies any chest pain, significant shortness of breath. Still has some abdominal cramps. Review of Systems Review of Systems: All systems reviewed & are unremarkable except as noted in HPI and below Constitutional: Constitutional: Denies fatigue, Denies headache(s) and Denies weakness Eyes: Eyes: Denies blurry vision ENT: Reports Normal hearing present, Denies headache(s) and Denies lip swelling Cardiovascular: Cardiovascular: Denies chest pain and Denies dyspnea Respiratory: Respiratory: Denies dyspnea Gastrointestinal: Gastrointestinal: Denies abdominal pain Genitourinary: Genitourinary: Denies dysuria Integumentary/Breasts: Skin/Breast: Denies dry skin Neurologic: Reports Normal hearing present, Denies confusion, Denies headache(s) and Denies weakness Psychiatric: Psychiatric: Denies anxiety and Denies confusion Endocrine: Endocrine: Denies fatigue and Denies flushing Hematologic/Lymphatic: Hematologic/Lymphatic: Denies easy bleeding Allergic/Immunologic: Allergic/Immunologic: Denies GI upset with certain foods and Denies lip swelling Exam Narrative: Exam Narrative: Patient awake alert oriented appears to be in no acute distress. Appears stated age Const: General: comfortable and no acute distress; No confusion Orientation/consciousness: No confusion HENMT: General nose exam: Normal nares present Eyes: Sclera: sclerae normal Neck: Neck: supple and no JVD Chest: Other: No reproducible chest wall pain to palpation. Small Lipoma is palpated right flank Resp: Auscultation: wheezes Cardio: Rate: regular rate Rhythm: regular rhythm GI: Auscultation: normal bowel sounds Skin: General skin exam: normal color Neuro: General: No confusion Cranial nerves: Yes Normal hearing present Cognition (Neuro): normal cognition Speech: normal speech Extrem: General: normal to inspection Psych: Mental Status: mental status grossly normal Objective Data Vital Signs Vital Signs: Vital Signs - 24 hr 03/26/21 10:00 03/26/21 12:00 03/26/21 12:28 Temperat
[2021-03-27] MEDS: hydrALAZINE HCL 20 MG/ML VIAL 10 MG IV PUSH (09:29)
[2021-03-27] MEDS: IPRATROPIUM BR 0.02% INH SOLN 0.5 MG/2.5 ML VIAL INHALATION (11:24)
[2021-03-27] MEDS: ALBUTEROL SULFATE NEB 2.5 MG/3 ML INH 1.25 MG INHALATION (11:24)
[2021-03-27 12:15] LABS: Anion Gap 1 mmol/L (8-16); Blood Urea Nitrogen 13 mg/dL (9-20); Carbon Dioxide 34 mmol/L (22-30); Chloride 97 mmol/L (98-107); Estimated CRCL calculation 87 ml/min; Estimated Glomerular Filt Rate > 60; Glucose 115 mg/dL (75-110); Magnesium 1.9 mg/dL (1.6-2.3); Potassium 3.4 mmol/L (3.4-5.0); Sodium 132 mmol/L (137-145)
[2021-03-27 15:08] LABS: Cholesterol 169 mg/dL (0-200); HDL Direct 45 mg/dL; Triglycerides 51 mg/dL (<150)
[2021-03-27 15:10] LABS: LDL Cholesterol Direct 119 mg/dL
[2021-03-27] MEDS: NICOTINE (*PBKC) 21 MG PATCH 1 PATCH TRANSDERM (16:19)
[2021-03-27] MEDS: CYCLOBENZAPRINE HCL 5 MG TABLET PO (19:41)
[2021-03-28] VITALS (7 sets, daily range): BP systolic 137–153; BP diastolic 86–100; PULSE 65–84; RESP 16–18; TEMP 36.4; O2SAT 99–100
[2021-03-28 04:58] LABS: Hematocrit 38.3 % (42.0-52.0); Hemoglobin 13.3 g/dL (14.0-18.0); Mean Corpuscular HGB Conc 34.7 g/dl (32-36); Mean Corpuscular Hemoglobin 33.4 pg (26-34); Mean Corpuscular Volume 96.2 fl (80-100); Mean Platelet Volume 12.7 fl (7.4-10.4); Platelet Count Result 92 k/mm3 (150-375); Red Blood Count 3.98 M/mm3 (4.6-6.20); Red Cell Distribution Width 13.1 % (11.5-14.5); White Blood Count 5.6 K/mm3 (4.5-10.0)
[2021-03-28 07:34] LABS: Anion Gap 1 mmol/L (8-16); Blood Urea Nitrogen 15 mg/dL (9-20); Calcium 9.3 mg/dL (8.4-10.2); Carbon Dioxide 35 mmol/L (22-30); Chloride 101 mmol/L (98-107); Estimated CRCL calculation 87 ml/min; Estimated Glomerular Filt Rate > 60; Glucose 96 mg/dL (75-110); Magnesium 1.5 mg/dL (1.6-2.3); Potassium 3.9 mmol/L (3.4-5.0); Sodium 137 mmol/L (137-145)
[2021-03-28] MEDS: ASPIRIN 81 MG CHEWABLE TABLET PO (08:45)
[2021-03-28] MEDS: SPIRONOLACTONE 25 MG TABLET PO (08:45)
[2021-03-28] MEDS: NICOTINE (*PBKC) 21 MG PATCH 1 PATCH TRANSDERM (08:45)
[2021-03-28] MEDS: carvediloL 6.25 MG TABLET PO (08:46)
[2021-03-28] MEDS: lisinopriL 20 MG TABLET PO (08:46)
[2021-03-28] MEDS: MAGNESIUM SULF 2 GM/WATER 50ML 2 GM/50 ML BAG IVPB ×2 (08:46→10:22)
[2021-03-28] MEDS: THIAMINE HCL 100 MG TABLET PO (08:46)
[2021-03-28] MEDS: amLODIPine BESYLATE 5 MG TABLET 10 MG PO (08:46)
[2021-03-28] MEDS: FOLIC ACID 1 MG TABLET PO (08:46)
--- NOTE | 2021-03-28 08:48 | PM.PNCARD ---
Progress Note: A&P Assessment and Plan (1) Elevated troponin: Code(s): R77.8 - Other specified abnormalities of plasma proteins Status: Acute Assessment and Plan: This is not related to acute coronary syndrome. He is secondary for either to his seizure or his marked hypertension. Will DC telemetry (2) Alcohol withdrawal seizure: Qualifiers: Complication of substance-induced condition: uncomplicated Qualified Code(s): F10.230 - Alcohol dependence with withdrawal, uncomplicated; R56.9 - Unspecified convulsions Code(s): F10.239 - Alcohol dependence with withdrawal, unspecified; R56.9 - Unspecified convulsions Status: Acute Assessment and Plan: Per neurology (3) Electrolyte imbalance: Code(s): E87.8 - Other disorders of electrolyte and fluid balance, not elsewhere classified Status: Acute Assessment and Plan: Markedly low magnesium and potassium levels. Potassium is okay. Magnesium has dropped again. Is receiving 2 g IV x1 now and will give him an additional 2 g IV x1 Okay to transfer to Medicine without telemetry (4) Hypertensive urgency: Code(s): I16.0 - Hypertensive urgency Status: Acute Assessment and Plan: Possibly secondary to lack of medications recently versus alcohol abuse versus other secondary etiologies including possible hyper aldosterone state, untreated sleep apnea. renal and aldosterone level are pending. Continue current BP meds. (5) Alcohol abuse: Code(s): F10.10 - Alcohol abuse, uncomplicated Status: Acute Assessment and Plan: Counseling performed. (6) Tobacco abuse: Code(s): Z72.0 - Tobacco use Status: Acute Assessment and Plan: Counseling performed Subjective Date/time seen: 03/28/21 08:48 Interval history: 50-year-old admitted for hypertensive urgency Date of service 03/28/2021: Still has some cramping yesterday but overall is much better. No chest pain shortness breath. Review of Systems Review of Systems: All systems reviewed & are unremarkable except as noted in HPI and below Constitutional: Constitutional: Denies fatigue, Denies headache(s) and Denies weakness Eyes: Eyes: Denies blurry vision ENT: Reports Normal hearing present, Denies headache(s) and Denies lip swelling Cardiovascular: Cardiovascular: Denies chest pain and Denies dyspnea Respiratory: Respiratory: Denies dyspnea Gastrointestinal: Gastrointestinal: Denies abdominal pain Genitourinary: Genitourinary: Denies dysuria Integumentary/Breasts: Skin/Breast: Denies dry skin Neurologic: Reports Normal hearing present, Denies confusion, Denies headache(s) and Denies weakness Psychiatric: Psychiatric: Denies anxiety and Denies confusion Endocrine: Endocrine: Denies fatigue and Denies flushing Hematologic/Lymphatic: Hematologic/Lymphatic: Denies easy bleeding Allergic/Immunologic: Allergic/Immunologic: Denies GI upset with certain foods and Denies lip swelling Exam Narrative: Exam Narrative: Patient awake alert oriented appears to be in no acute distress. Appears stated age Const: General: comfortable and no acute distress; No confusion Orientation/consciousness: No confusion HENMT: General nose exam: Normal nares present Eyes: Sclera: sclerae normal Neck: Neck: supple and no JVD Chest: Other: No reproducible chest wall pain to palpation. Small Lipoma is palpated right flank Resp: Auscultation: wheezes Cardio: Rate: regular rate Rhythm: regular rhythm GI: Auscultation: normal bowel sounds Skin: General skin exam: normal color Neuro: General: No confusion Cranial nerves: Yes Normal hearing present Cognition (Neuro): normal cognition Speech: normal speech Extrem: General: normal to inspection Psych: Mental Status: mental status grossly normal Objective Data Vital Signs Vital Signs: Vital Signs - 24 hr 03/27/21 10:00 03/27/21 11:24 03/27/21 11:34 Tem
--- NOTE | 2021-03-28 15:22 | PM.DS ---
DS: Admitting Diagnosis Admitting Diagnosis Admitting Diagnosis: Seizure-like activity DS: Discharge Diagnosis Discharge Diagnosis (1) Alcohol withdrawal seizure: Qualifiers: Complication of substance-induced condition: uncomplicated Qualified Code(s): F10.230 - Alcohol dependence with withdrawal, uncomplicated; R56.9 - Unspecified convulsions Code(s): F10.239 - Alcohol dependence with withdrawal, unspecified; R56.9 - Unspecified convulsions Status: Acute Assessment and Plan: Patient is an every day drinker but no ETOH for the last four days prior to admission. No history of seizure. CT head negative. Neurology followed along and appreciate their input. He was monitored using CIWA scores. We had benzodiazepines available as needed for evidence of withdrawal or seizures. We started thiamine and folate. He was educated about the benefits abstain from alcohol use. No driving until seen by Neurology. (2) Acute hypokalemia: Code(s): E87.6 - Hypokalemia Status: Acute Assessment and Plan: Potassium low at 2.5 on admission. This was replaced multiple times potassium became better controlled. Most likely related to severe hypo magnesemia. Could also be related to hydrochlorothiazide although patient is noncompliant with his medications. Hydrochlorothiazide was not continued. He was started on spironolactone. Potassium is 3.9 today. (3) Hypertensive urgency: Code(s): I16.0 - Hypertensive urgency Status: Acute Assessment and Plan: Blood pressure was 197/113 on admission. Most likely etiology of his elevated creatinine and elevated troponins. Patient has a history of hypertension and is noncompliant with his medications. He was started on oral and IV medications with improvement of his blood pressure. He was transitioned to oral medications only. Blood pressures become better controlled at 137/95 today. Appreciate cardiology input. Discussed the benefits of being compliant with his medications. (4) Cirrhosis, alcoholic: Qualifiers: Ascites presence: without ascites Qualified Code(s): K70.30 - Alcoholic cirrhosis of liver without ascites Code(s): K70.30 - Alcoholic cirrhosis of liver without ascites Status: Acute Assessment and Plan: CT of chest, abdomen and pelvis showing cirrhosis of the liver. AST was 265 and ALT 137 with a total bilirubin 4.5. PT is elevated with an INR 1.3 and normal PTT. Brent related to alcoholic hepatitis. Repeat values improved to AST 180 and ALT 108 respectfully with the bilirubin down to 2.8. Alcohol cessation is a must. He was notified that he has alcoholic cirrhosis now. Patient did have bilateral lower extremity large varicosities noted. These do cause him discomfort at times. Lower extremity venous Dopplers were negative for DVT. No concerning findings noted by CT of the abdomen to explain etiology of his varicosities. (5) Alcohol abuse: Code(s): F10.10 - Alcohol abuse, uncomplicated Status: Acute Assessment and Plan: Admits to drinking alcohol but unclear about amount or frequency. No history of ETOH withdrawal. patient was educated about the benefits of abstain from alcohol use. He was treated with thiamine and folate. (6) Hypomagnesemia: Code(s): E83.42 - Hypomagnesemia Status: Acute Assessment and Plan: Magnesium was low at 0.9 admission. Magnesium was replaced. Slightly low today 1.5 in replacement again was ordered. Patient to with magnesium placement. Low magnesium probably related to his alcoholism. (7) Elevated troponin: Code(s): R77.8 - Other specified abnormalities of plasma proteins Status: Acute Assessment and Plan: Troponin elevated at 0.051 and peaked at 0.064. No palpitations or chest pain. EKG showing LVH, LAFB and NSR. Cardioloy consulted. Brent elevated troponin related to the uncontrolled hypert
[2021-03-31 13:19] LABS: Renin 0.22 ng/mL/h (0.25-5.82)
--- NOTE | 2021-04-01 15:14 | PC.NURSE ---
REsults of EDUARD and Renin given to Dr. Fisher.
== END 2021-03-28 16:25 | disposition home or self-care (01) | DRG 775 ==
LOC: ANHED 04:45 → ANHIMU 09:47
PROVIDERS: Internal Medicine Cardiovascular Disease; Admitting Provider Internal Medicine; Emergency Provider Emergency Medicine; Visit Provider Nurse Practitioner
DX: F10.230 Alcohol dependence with withdrawal, uncomplicated (principal); R56.9 Unspecified convulsions; K70.30 Alcoholic cirrhosis of liver without ascites; E83.42 Hypomagnesemia; E87.6 Hypokalemia; I16.0 Hypertensive urgency; I12.9 Hypertensive chronic kidney disease with stage 1 through stage 4 chronic kidney disease, or unspecified chronic kidney disease; N18.2 Chronic kidney disease, stage 2 (mild); R10.0 Acute abdomen; R77.8 Other specified abnormalities of plasma proteins; R79.89 Other specified abnormal findings of blood chemistry; F17.210 Nicotine dependence, cigarettes, uncomplicated; E78.00 Pure hypercholesterolemia, unspecified; Z79.899 Other long term (current) drug therapy; Z91.14 Patient's other noncompliance with medication regimen
CPT/HCPCS: 36415; 70450; 71046; 71250; 74176; 80048; 80053; 80061; 80307; 82088; 82248; 83735; 84100; 84244; 84484; 85025; 85027; 85610; 85730; 93005; 93306; 93970; 94640; 96361; 96374; 96375; 99285; A9270; J0360; J2060; J2405; J3411; J3475; J3480; J7030; J7121

== ENCOUNTER 2021-04-02 01:43 | Emergency (ER) | payer OTHER, SELFPAY ==
[2021-04-02] VITALS (15 sets, daily range): BP systolic 117–137; BP diastolic 78–93; PULSE 70–88; RESP 19–24; TEMP 36.7; O2SAT 93–100
--- NOTE | ~2021-04-02 | CT_ITS ---
EXAMINATION: CT abdomen pelvis w con DATE: 04/02/2021 03:23 INDICATION: Abdominal pain. TECHNIQUE: Computed tomography (CT) of the abdomen and pelvis was performed with 100 mL Omnipaque 350 intravenous contrast. Automated exposure control and iterative reconstruction technique were employe d. The dose-length product was 908.98 mGy-cm. COMPARISON: CT abdomen and pelvis 03/26/2021 FINDINGS: The visualized portions of the lung bases demonstrate minimal atelectasis on the right. No pleural effusion. The heart size is normal. No pericardial effusion. There are coronary artery calcif ications. The liver demonstrates heterogeneous attenuation and surface nodularity, consistent with ci rrhosis. The gallbladder, spleen, and adrenal glands are normal. There is a calcification in the panc reas, consistent with chronic pancreatitis. Right kidney is normal. Left kidney is located in the pel vis and demonstrates a small area of parenchymal volume loss and mild hydronephrosis. There are no di lated loops of bowel. The appendix is normal. There is wall thickening of the gastric antrum. There a re no pathologically enlarged lymph nodes. There is no free intraperitoneal fluid. There is mild thor acolumbar spondylosis. IMPRESSION: 1. Wall thickening of the gastric antrum, likely gastritis. 2. Cirrhosis of the liver. 3. Left-sided pelvic kidney with mild hydronephrosis. Reviewed, dictated and finalized at location A.
--- NOTE | 2021-04-02 01:55 | ECG_ITS ---
Measurements Intervals [place] Rate: 82 P: 60 [place]: 147 QRS: -43 QRSD: 111 T: 58 QT: 365 QTc: 426 Interpretive Statements SINUS RHYTHM LEFT AXIS DEVIATION CANNOT RULE OUT SEPTAL INFARCT, AGE INDETERMINATE ST ELEVATION IN ANTERIOR LEADS- PROBABLY EARLY REPOLAIZATION BASELINE ARTIFACT- I, II, III, AVR, AVL, AVF ABNORMAL ECG Electronically Signed On 04-02-2021 6:45:19 CDT by Sesar Xie D.O.
[2021-04-02 02:32] LABS: Basophils Absolute Auto 0.1 K/mm3 (0.0-0.1); Basophils Percent Auto 0.8 % (0.2-1.2); Eosinophils Absolute Auto 0.1 K/mm3 (0-0.3); Eosinophils Percent Auto 0.8 % (0-4.4); Hematocrit 41.3 % (42.0-52.0); Hemoglobin 14.2 g/dL (14.0-18.0); Immature Granulocyte Absolute 0.03 K/mm3 (0.00-0.031); Immature Granulocyte Percent A 0.4 % (0-0.5); Lymphocytes Absolute Auto 3.13 K/mm3 (0.9-3.2); Lymphocytes Percent Auto 39.6 % (18.3-44.2); Mean Corpuscular HGB Conc 34.4 g/dl (32-36); Mean Corpuscular Volume 98.8 fl (80-100); Mean Platelet Volume 11.6 fl (7.4-10.4); Monocytes Percent Auto 12.8 % (2.6-8.5); Neutrophils Absolute Auto 3.6 K/mm3 (1.3-6.7); Neutrophils Percent Auto 45.6 % (45.5-73.1); Platelet Count Result 169 k/mm3 (150-375); Red Blood Count 4.18 M/mm3 (4.6-6.20); Red Cell Distribution Width 13.2 % (11.5-14.5); White Blood Count 7.9 K/mm3 (4.5-10.0)
[2021-04-02 02:50] LABS: Alanine Aminotransferase 53 U/L (4-50); Albumin Level 4.3 g/dL (3.5-5.1); Alkaline Phosphatase 74 U/L (38-126); Anion Gap 9 mmol/L (8-16); Aspartate Amino Transferase 82 U/L (17-59); Bilirubin,Total 1.1 mg/dL (0.2-1.3); Blood Urea Nitrogen 24 mg/dL (9-20); Calcium 9.6 mg/dL (8.4-10.2); Carbon Dioxide 24 mmol/L (22-30); Chloride 102 mmol/L (98-107); Estimated CRCL calculation 46 ml/min; Estimated Glomerular Filt Rate 35; Glucose 135 mg/dL (75-110); Potassium 4.9 mmol/L (3.4-5.0); Sodium 135 mmol/L (137-145)
--- NOTE | 2021-04-02 03:36 | ED.GENADULT ---
HPI - General Adult General Chief complaint: Neuro Symptoms/Deficit Stated complaint: bilateral arm numbness Time Seen by Provider: 04/02/21 02:21 History of Present Illness HPI narrative: Patient is a 50-year-old gentleman who presents the emergency department with chief complaint of numbness in arms. Patient states he was recently in the hospital for new onset seizures and has been having abdominal discomfort since then. The patient states that he has pain in his abdomen and then when the pain strikes he starts having a difficult time breathing because of the pain and this is can start cramping up and his arms going down. Patient states that is gotten so bad that his legs will go numb when this happens as well. The patient states that after he is relaxed from the pain that the cramping has stopped. Related Data Allergies Allergy/AdvReac Type Severity Reaction Status Date / Time bacitracin Allergy Unknown Unknown Verified 04/02/21 01:49 neomycin Allergy Unknown Unknown Verified 04/02/21 01:49 polymyxin B Allergy Unknown Unknown Verified 04/02/21 01:49 Review of Systems Review of Systems: Narrative: A 10 system review of systems was completed on the patient and is negative except for what is stated in the HPI. Nursing and ancillary documentation was reviewed. [facility] Past Medical History Medical History Chlamydia Chronic kidney disease (CKD) stage G2/A1, mildly decreased glomerular filtration rate (GFR) between 60-89 mL/min/1.73 square meter and albuminuria creatinine ratio less than 30 mg/g Contusion of face Electrolyte imbalance Essential hypertension Hypercholesteremia Tobacco abuse Family History Family History Mother Hypertension Heart disease Cerebrovascular accident Sibling Cerebrovascular accident Brother Diabetes mellitus Brother Social History Social History Social History: Patient is a full code and surrogate is his ex-girlfriend Yaz [phone]. Smoking packs per day: 1 Smoking cigarettes per day: 20.0 Years smoked: 20 Smoking pack-years: 20.00 Smoking status: Heavy tobacco smoker Tobacco type: cigarettes Second hand tobacco smoke exposure: Yes Alcohol intake: current Drinks per week: 28 Substance use: current Substance use type: marijuana Last use: 03/22/21 Gender identity (if verbalized by the patient): Male Spiritual care concerns: No Exam Narrative: Exam Narrative: GENERAL: Well-appearing, well-nourished, and in no acute distress. HEAD: Normocephalic, atraumatic. EYES: PERRLA and EOMI. ENT: Nares clear, no rhinorrhea or epistaxis. Mucous membranes moist. NECK: Supple. CHEST: Clear to auscultation. No respiratory distress. HEART: Regular rate and rhythm. No murmur heard. Normal peripheral pulses. ABDOMEN: Soft, nontender, nondistended, normal active bowel sounds. EXTREMITIES: Normal range of motion. No edema. SKIN: Warm, dry, no rash. NEURO: No focal deficits. Alert and oriented x3. PSYCH: Normal mood and affect. Course Vital Signs Vital signs: Vital Signs Temperature 36.7 C 04/02/21 01:42 Pulse Rate 88 04/02/21 01:42 Respiratory Rate 20 04/02/21 01:42 Blood Pressure 137/78 04/02/21 01:42 Pulse Oximetry 100 04/02/21 01:42 Temperature 36.7 C 04/02/21 01:42 Pulse Rate 72 04/02/21 04:30 Respiratory Rate 22 H 04/02/21 04:30 Blood Pressure 131/93 H 04/02/21 03:31 Pulse Oximetry 100 04/02/21 03:45 Medical Decision Making Vital Signs Vital Signs: Vital Signs Temperature 36.7 C 04/02/21 01:42 Pulse Rate 88 04/02/21 01:42 Respiratory Rate 20 04/02/21 01:42 Blood Pressure 137/78 04/02/21 01:42 Pulse Oximetry 100 04/02/21 01:42 Temperature 36.7 C 04/02/21 01:42 Pulse Rate 72 04/02/21 04:30
[2021-04-02 04:52] LABS: Lipase 252 U/L (23-300)
[2021-04-02 04:54] LABS: Lactic Acid Reflex 1.5 mmol/L (0.7-2.1)
[2021-04-02 05:04] LABS: Troponin I 0.021 ng/mL (0.000-0.034)
== END 2021-04-02 05:41 | disposition home or self-care (01) ==
PROVIDERS: Emergency Provider Emergency Medicine
DX: K29.00 Acute gastritis without bleeding (principal); R10.84 Generalized abdominal pain; F17.210 Nicotine dependence, cigarettes, uncomplicated; I12.9 Hypertensive chronic kidney disease with stage 1 through stage 4 chronic kidney disease, or unspecified chronic kidney disease; N18.2 Chronic kidney disease, stage 2 (mild); E78.5 Hyperlipidemia, unspecified
CPT/HCPCS: 36415; 74177; 80053; 83605; 83690; 84484; 85025; 93005; 99284; Q9967

== ENCOUNTER 2021-07-24 16:16 | Emergency (ER) | payer OTHER, SELFPAY ==
[2021-07-24 16:19] VITALS: BP 147/105; PULSE 80; RESP 18; TEMP 36.7; O2SAT 99
--- NOTE | 2021-07-24 16:44 | ECG_ITS ---
Measurements Intervals [place] Rate: 65 P: 71 [place]: 159 QRS: -34 QRSD: 129 T: -31 QT: 428 QTc: 445 Interpretive Statements SINUS RHYTHM LEFT AXIS DEVIATION INTRAVENTRICULAR CONDUCTION DELAY CANNOT RULE OUT SEPTAL INFARCT, AGE INDETERMINATE BORDERLINE T WAVE ABNORMALITY- ANTEROLAT/INF LEADS BASELINE WANDER- I, II, AVR, AVL, AVF, V1-V2 Electronically Signed On 07-24-2021 20:54:47 CDT by Sesar Xie D.O.
[2021-07-24 17:46] LABS: Basophils Percent Auto 0.7 % (0.2-1.2); Eosinophils Percent Auto 0.7 % (0-4.4); Hematocrit 40.9 % (42.0-52.0); Hemoglobin 14.2 g/dL (14.0-18.0); Immature Granulocyte Absolute 0.01 K/mm3 (0.00-0.031); Immature Granulocyte Percent A 0.3 % (0-0.5); Lymphocytes Absolute Auto 1.43 K/mm3 (0.9-3.2); Lymphocytes Percent Auto 47.2 % (18.3-44.2); Mean Corpuscular HGB Conc 34.7 g/dl (32-36); Mean Corpuscular Hemoglobin 32.9 pg (26-34); Mean Corpuscular Volume 94.9 fl (80-100); Mean Platelet Volume 10.8 fl (7.4-10.4); Monocytes Absolute Auto 0.5 K/mm3 (0.1-0.6); Monocytes Percent Auto 15.2 % (2.6-8.5); Neutrophils Absolute Auto 1.1 K/mm3 (1.3-6.7); Neutrophils Percent Auto 35.9 % (45.5-73.1); Platelet Count Result 92 k/mm3 (150-375); Red Blood Count 4.31 M/mm3 (4.6-6.20); Red Cell Distribution Width 13.4 % (11.5-14.5)
[2021-07-24 17:56] LABS: Ethanol 80 mg/dL (<10)
[2021-07-24 17:57] LABS: Add Urine Microscopic? YES; Alanine Aminotransferase 151 U/L (4-50); Albumin Level 3.9 g/dL (3.5-5.1); Alkaline Phosphatase 99 U/L (38-126); Anion Gap 13 mmol/L (8-16); Appearance Urine Clear (Clear); Aspartate Amino Transferase 251 U/L (17-59); Bacteria Urine Trace /hpf; Bilirubin Urine Negative (Negative); Bilirubin,Total 2.6 mg/dL (0.2-1.3); Blood Urea Nitrogen 11 mg/dL (9-20); Blood Urine Negative (Negative); Calcium 8.9 mg/dL (8.4-10.2); Carbon Dioxide 25 mmol/L (22-30); Chloride 99 mmol/L (98-107); Color Urine Yellow (Yellow); Estimated CRCL calculation 74 ml/min; Estimated Glomerular Filt Rate > 60; Glucose 155 mg/dL (65-110); Glucose Urine UA Negative (Negative); Ketones Urine Negative (Negative); Leukocyte Esterase Ur Negative LEU/UL (Negative); Nitrate Urine Negative (Negative); Potassium 3.3 mmol/L (3.4-5.0); Protein Urine Negative (Negative); RBC Urine 0-2 /hpf (0-2); Sodium 137 mmol/L (137-145); Specific Grav Ur 1.017 (1.001-1.035); Squamous Epithelial Cell Urine Rare /hpf (Few); WBC Urine 0-3 /hpf
[2021-07-24 18:03] LABS: Amphetamine Screen Urine Negative (Negative); Barbiturate Screen Urine Negative (Negative); Benzodiazepines Screen Urine Negative (Negative); Cannabinoid Screen Urine Positive (Negative); Cocaine Screen Urine Positive (Negative); Methadone Screen Urine Negative (Negative); Opiate Screen Urine Negative (Negative); Phencyclidine Screen Urine Negative (Negative)
--- NOTE | 2021-07-24 18:22 | ED.PSYCH ---
HPI - Psych General Chief Complaint: Psychiatric Symptoms Stated Complaint: SI Time Seen by Provider: 07/24/21 16:30 Source: patient Mode of arrival: other (Police) Limitations: no limitations History of Present Illness HPI Narrative: 51-year-old with a history of hypertension, depression was brought in by PD with complaints of suicidal ideation for past 1 week. Patient states he has lost everything and is presently homeless. He states that his family left him. He denies any chest pain or shortness of breath. He states that he would like to cut his wrist and his life. MD complaint: suicidal ideation and feels depressed Onset (ago): week(s) (1) Duration: constant History of same: Yes Relieving factors: none Exacerbating factors: none Context: significant life stressor Associated psychiatric symptoms: depression and suicidal ideation Associated symptoms: denies other symptoms Treatments prior to arrival: none If self harm: admits thoughts of self harm Related Data Allergies Allergy/AdvReac Type Severity Reaction Status Date / Time bacitracin Allergy Unknown Unknown Verified 04/02/21 01:49 neomycin Allergy Unknown Unknown Verified 04/02/21 01:49 polymyxin B Allergy Unknown Unknown Verified 04/02/21 01:49 Review of Systems Review of Systems: All systems reviewed & are unremarkable except as noted in HPI and below Constitutional: Constitutional: Reports no additional constitutional complaints Eyes: Eyes: Reports no additional eye complaints ENT: Reports system reviewed and no additional complaints, except as documented Cardiovascular: Cardiovascular: Reports no additional cardiovascular complaints Respiratory: Respiratory: Reports no additional respiratory complaints Gastrointestinal: Gastrointestinal: Reports no additional gastrointestinal complaints Genitourinary: Genitourinary: Reports no additional male genitourinary complaints Musculoskeletal: Musculoskeletal: Reports no additional musculoskeletal complaints Integumentary/Breasts: Skin/Breast: Reports system reviewed and no additional complaints, except as docu Neurologic: Reports system reviewed and no additional complaints, except as documented Hematologic/Lymphatic: Hematologic/Lymphatic: Reports no additional hematologic/lymphatic complaints [facility] Past Medical History Medical History Chlamydia Chronic kidney disease (CKD) stage G2/A1, mildly decreased glomerular filtration rate (GFR) between 60-89 mL/min/1.73 square meter and albuminuria creatinine ratio less than 30 mg/g Contusion of face Electrolyte imbalance Essential hypertension Hypercholesteremia Tobacco abuse Family History Family History Mother Hypertension Heart disease Cerebrovascular accident Sibling Cerebrovascular accident Brother Diabetes mellitus Brother Social History Social History Social History: Patient is a full code and surrogate is his ex-girlfriend Yaz [phone]. Smoking packs per day: 1 Smoking cigarettes per day: 20.0 Years smoked: 20 Smoking pack-years: 20.00 Smoking status: Heavy tobacco smoker Tobacco type: cigarettes Second hand tobacco smoke exposure: Yes Alcohol intake: current Drinks per week: 28 Substance use: current Substance use type: marijuana Last use: 03/22/21 Gender identity (if verbalized by the patient): Male Spiritual care concerns: No Exam Narrative: GENERAL: Well-appearing, well-nourished, and in no acute distress. HEAD: Normocephalic, atraumatic. EYES: PERRLA and EOMI. NECK: Supple. CHEST: Clear to auscultation. No respiratory distress. HEART: Regular rate and rhythm. No murmur heard. Normal peripheral pulses. ABDOMEN: Soft, nontender, nondistended, normal active bowel sounds. EXTREMITIES: Normal range of motion. No edema. Abrasio
[2021-07-24 18:43] LABS: Thyroid Stimulating Hormone 0.765 uIU/mL (0.465-4.680)
[2021-07-24] MEDS: NICOTINE (*PBKC) 21 MG PATCH 1 PATCH TRANSDERM (20:47)
--- NOTE | 2021-07-24 21:33 | PC.NURSE ---
Tiara from Crisis and EDP Zain discussed trying to find patient placement for inpatient psychiatric treatment. Patient updated.
--- NOTE | 2021-07-24 22:29 | PC.NURSE ---
Patient refused to allow covid swab to be performed. ED Charge made aware.
[2021-07-24 23:42] VITALS: BP 154/88; PULSE 91; RESP 18; O2SAT 100
== END 2021-07-24 23:45 | disposition home or self-care (01) ==
PROVIDERS: Emergency Provider Family Medicine
DX: F14.10 Cocaine abuse, uncomplicated (principal); F32.9 Major depressive disorder, single episode, unspecified; I12.9 Hypertensive chronic kidney disease with stage 1 through stage 4 chronic kidney disease, or unspecified chronic kidney disease; N18.2 Chronic kidney disease, stage 2 (mild); E78.00 Pure hypercholesterolemia, unspecified; F17.210 Nicotine dependence, cigarettes, uncomplicated; Z59.0 Homelessness
CPT/HCPCS: 36415; 80053; 80307; 81001; 84443; 85025; 93005; 99284; A9270